=== PATIENT | female | born 1970 | race Caucasian/White ===

== ENCOUNTER → 2020-01-24 07:24 | Outpatient (CLI) | payer OTHER, SELFPAY ==
--- NOTE | ~2020-01-24 | MM_ITS ---
EXAMINATION: MM screening [facility] w [facility] HISTORY: Screening mammogram TECHNIQUE: Craniocaudal and mediolateral oblique 3-D tomosynthesis images were obtained and synthetic 2-D images were generated. CAD analysis was submitted and interpreted. COMPARISON: 12/20/2018 bilateral digital screening mammogram BREAST PARENCHYMAL COMPOSITION: The breasts are almost entirely fatty. FINDINGS: There is no evidence of suspicious mass, calcification, or architectural distortion to sugg est malignancy in either breast. There has been no suspicious interval change. IMPRESSION: 1. No mammographic evidence of malignancy. 2. Recommend routine screening mammography in one year. BI-RADS Category 1: Negative Reviewed, dictated and finalized at location A. [facility]Y NURSE
== END ==
DX: Z12.31 Encounter for screening mammogram for malignant neoplasm of breast (principal)
CPT/HCPCS: 77063; 77067

== ENCOUNTER 2020-06-03 10:07 | Outpatient (CLI) | payer OTHER, SELFPAY ==
--- NOTE | ~2020-06-03 | XR_ITS ---
XR hand RT 2V DATE: 06/03/2020 10:34 INDICATION: Right hand pain. No injury. TECHNIQUE: AP and lateral views COMPARISON: None FINDINGS: There are osteoarthritic changes involving the first carpometacarpal and interphalangeal estrellita ints. There is narrowing at the fourth metacarpophalangeal joint as well. No fracture, dislocation, periosteal reaction or bone destruction, erosive change or chondrocalcinosi s. . IMPRESSION: Polyarticular osteoarthritis Reviewed, dictated and finalized at location A.
[2020-06-03 11:05] LABS: Rheumatoid Factor < 8.6 IU/ML (<12)
== END 2020-06-03 10:08 | disposition home or self-care (01) ==
PROVIDERS: PCP Emergency Medicine; Visit Provider Emergency Medicine
DX: M79.642 Pain in left hand (principal); M19.041 Primary osteoarthritis, right hand
CPT/HCPCS: 36415; 73120; 86038; 86430

== ENCOUNTER → 2021-03-11 10:27 | Outpatient (CLI) | payer BC, SELFPAY ==
--- NOTE | ~2021-03-11 | MM_ITS ---
EXAMINATION: MM screening [facility] w [facility] HISTORY: Screening mammogram TECHNIQUE: Craniocaudal and mediolateral oblique 3-D tomosynthesis images were obtained and synthetic 2-D images were generated. CAD analysis was submitted and interpreted. COMPARISON: 01/2020, 12/20/2018 bilateral digital screening mammogram examinations BREAST PARENCHYMAL COMPOSITION: The breasts are almost entirely fatty. FINDINGS: There is no evidence of suspicious mass, calcification, or architectural distortion to sugg est malignancy in either breast. There has been no suspicious interval change. IMPRESSION: 1. No mammographic evidence of malignancy. 2. Recommend routine screening mammography in one year. BI-RADS Category 1: Negative Reviewed, dictated and finalized at location A.
== END ==
DX: Z12.31 Encounter for screening mammogram for malignant neoplasm of breast (principal)
CPT/HCPCS: 77063; 77067

== ENCOUNTER → 2021-03-17 12:04 | Outpatient (CLI) | payer BC, SELFPAY ==
--- NOTE | ~2021-03-17 | XR_ITS ---
EXAMINATION: XR elbow RT 2V EXAM DATE: 03/17/2021 12:15 INDICATION: Posterior/ lateral rt elbow pain x 2 mths no known injury, pain tenderness that radiates down arm to hand TECHNIQUE: Frontal and lateral projections of the right elbow. There is no prior study for comparis on. FINDINGS: No right elbow joint effusion. There are no bony erosions identified. There are no acute f ractures or dislocations identified. There is no subcutaneous gas. The soft tissue is unremarkable. There are no radiopaque foreign bodies. IMPRESSION: 1. Unremarkable XR elbow RT 2V exam. Reviewed, dictated and finalized at location A.
== END ==
PROVIDERS: PCP Emergency Medicine; Visit Provider Emergency Medicine
DX: R52 Pain, unspecified (principal)
CPT/HCPCS: 73070

== ENCOUNTER → 2022-04-08 12:41 | Outpatient (CLI) | payer BC, SELFPAY ==
--- NOTE | ~2022-04-08 | MM_ITS ---
EXAMINATION: MM screening [facility] BI w [facility] HISTORY: Screening mammogram TECHNIQUE: Craniocaudal and mediolateral oblique 3-D tomosynthesis images were obtained and synthetic 2-D images were generated. CAD analysis was submitted and interpreted. COMPARISON: 03/11/2021, 01/24/2020 BREAST PARENCHYMAL COMPOSITION: There are scattered areas of fibroglandular density. FINDINGS: There is no suspicious mass, calcification, or architectural distortion to suggest malignan cy in either breast. There has been no suspicious interval change. IMPRESSION: 1. No mammographic evidence of malignancy. 2. Recommend routine screening mammography in one year. BI-RADS Category 1: Negative Reviewed, dictated and finalized at location A.
== END ==
PROVIDERS: PCP Emergency Medicine
DX: Z12.31 Encounter for screening mammogram for malignant neoplasm of breast (principal)
CPT/HCPCS: 77063; 77067

== ENCOUNTER 2022-05-22 12:22 | Emergency (ER) | payer BC, SELFPAY ==
--- NOTE | 2022-05-22 12:32 | ED.URI ---
HPI - URI/Sore Throat General Chief Complaint: Upper Respiratory Infection Stated Complaint: Sinus Infection Time Seen by Provider: 05/22/22 12:40 Source: patient and RN notes reviewed Mode of arrival: ambulatory Limitations: no limitations History of Present Illness HPI Narrative: 51-year-old female presents with concern for 1-1/2-month history of sinus congestion, thick sinus drainage, sinus pressure. Reports symptoms started on Mother's Day. Reports she has been taking Claritin. Reports she saw last week and he prescribed her erythromycin which she took for 5 days without any relief. She reports symptoms seem to be worsening with thick drainage and pressure. She denies other intervention besides Claritin. MD elicited complaint: rhinorrhea and nasal congestion Related Data Home Medications Medication Instructions Recorded Confirmed doxycycline hyclate 100 mg capsule mg 05/22/22 estradiol-norethindrone acet 0.5 tablet 05/22/22 mg-0.1 mg tablet Allergies Allergy/AdvReac Type Severity Reaction Status Date / Time codeine Allergy Unknown Unknown Verified 03/10/22 11:10 Review of Systems Review of Systems: CONSTITUTIONAL: Reports malaise, fatigue. Denies chills, sweats, or fever. EYES: Denies visual changes, redness, or discharge. ENT: Reports rhinorrhea, congestion, sinus pain,, purulent nasal drainage. Denies otalgia and sore throat. CARDIOVASCULAR: Denies chest pain, palpitations, or edema. RESPIRATORY: Reports cough. Denies dyspnea. GASTROINTESTINAL: Denies abdominal pain, nausea, vomiting, diarrhea SKIN: Denies rash or itching. MUSCULOSKELETAL: Denies myalgia. NEUROLOGIC: Denies headache. All systems reviewed & are unremarkable except as noted in HPI and below PMFSH Past Medical History Medical History (Updated 05/22/22 @ 12:52 by Kacey Murray NP) Depression Finger deformity, acquired Family History Family History Mother Family history of cardiovascular disease Carcinoma of colon Father Family history of Parkinson's disease Social History Social History Alcohol intake: current Comments At time of signature, agree with nursing past medical, surgical, social and family history. There is no relevant family history pertinent to the presenting complaint Exam Narrative: GENERAL: Nontoxic. And in no acute distress. HEAD: Normocephalic EYES: PERRLA, conjunctivae clear ENT: Nares clear, turbinates edematous and erythematous, purulent discharge. Mucous membranes moist. TM pearly kerr with dull light reflex bilaterally; no tragal tenderness. Oropharynx not erythematous without lesions. Tonsils not enlarged and without exudate, no drooling, no hoarseness, no trismus, uvula midline. NECK: Supple. No lymphadenopathy CHEST: Clear to auscultation, breath sounds equal. No wheezing, rhonchi, rales, or stridor. No respiratory distress, speaks in full sentences. HEART: Regular rate and rhythm. No murmur heard. SKIN: Warm, dry, no rash. NEURO: Alert and oriented x3. PSYCH: Normal mood and affect Course Course Emergency Course: Patient is aware of diagnosis, understands and agrees to treatment plan. Anticipatory guidance given. Patient agrees to follow-up as directed and is aware of reasons to seek care at the emergency department. Portions of this record may have been created with voice recognition software Level of Care: Express Care Visit Vital Signs Vital signs: Vital Signs Temperature 97.9 F 05/22/22 12:33 Pulse Rate 68 05/22/22 12:33 Respiratory Rate 16 05/22/22 12:33 Blood Pressure 118/73 05/22/22 12:33 Pulse Oximetry 99 05/22/22 12:33 Oxygen Delivery Room Air 05/22/22 12:33 Temperature 97.9 F 05/22/22 12:33 Pulse Rate 68 05/22/22 12:33 Respiratory Rate 16 05/22/22 12:33 Blood Pressure 118/73 05/22/22 12:33 Pulse Oximetry 99 05/22/22 12:33
[2022-05-22 12:33] VITALS: BP 118/73; PULSE 68; RESP 16; TEMP 36.6; O2SAT 99
== END 2022-05-22 13:00 | disposition home or self-care (01) ==
PROVIDERS: Emergency Provider Nurse Practitioner; PCP Emergency Medicine
DX: J01.90 Acute sinusitis, unspecified (principal)
CPT/HCPCS: 99213; G0463